=== PATIENT | male | born 1990 | race Caucasian/White ===

== ENCOUNTER 2016-08-02 12:08 | Emergency (ER) | payer SELFPAY ==
[2016-08-02 12:55] VITALS: BP 117/79; PULSE 66; RESP 14; TEMP 98.2; O2SAT 97
--- NOTE | 2016-08-02 13:25 | UCPHY ---
H & P Time Seen by Provider: 08/02/16 13:24 Patient Type: New HPI/ROS: Chief complaint. Blurry vision right eye HPI. 26 male blurry vision right eye for 2 days after getting a wood chip in his eye. No pain. Little bit of drainage. No redness. He has been sick with upper respiratory symptoms. No previous eye injury ROS Constitutional. no fever/chills, no weakness Eyes. Right eye blurry vision ENT. no sore throat, no nasal drainage Cardiovascular. no chest pain Respiratory. no shortness of breath, no cough Abdominal. no abdominal pain, no nausea/vomiting, no diarrhea . no problems urinating MS. no calf pain/swelling, no neck/back pain, no joint pain Skin. no rash Lymph. no swollen glands Neuro. no headache, no dizziness, no difficulty walking or with speech Past Medical/Surgical History: Healthy Social History: Single, nonsmoker, no alcohol Smoking Status: Never smoked Physical Exam: General Appearance: Alert well-developed male no distress vitals are stable Eyes: Pupils equal round reactive. There is no injection to the right eye. No obvious foreign body. ENT, Mouth: Mucous membranes are moist. Respiratory: There are no retractions, lungs are clear to auscultation. Cardiovascular: Regular rate and rhythm. Gastrointestinal: Abdomen is soft and nontender, no masses, bowel sounds normal. Neurological: Awake and alert, sensory and motor exams grossly normal. Skin: Warm and dry, no rashes. Musculoskeletal: Neck is supple nontender. Extremities symmetrical, full range of motion. Psychiatric: Patient is oriented X 3, there is no agitation. Constitutional: Initial Vital Signs Temperature (C) 36.8 C 08/02/16 12:47 Heart Rate 66 08/02/16 12:47 Respiratory Rate 14 08/02/16 12:47 Blood Pressure 117/79 08/02/16 12:47 O2 Sat (%) 97 08/02/16 12:47 O2 Delivery Mode Room Air Allergies/Adverse Reactions: No Known Allergies Allergy (Unverified 08/02/16 12:46) Home Medications: Medication Instructions Recorded NK [No Known Home Meds] 08/02/16 Medical Decision Making Procedures: Visual acuity is 2012 in the good eye which is left and 2014 in right eye Fluorescein and Alcaine or instilled in the right eye and the eye is examined under slit lamp. There is no fluorescence or evidence of abrasion or foreign body. The floor seen is irrigated from the eye. Patient tolerates the procedure well ED Course/Re-evaluation: Patient remained stable. He and I discussed treatment plan including criteria for return importance of follow-up and further evaluation. He expresses understanding and agreement Differential Diagnosis: I considered corneal abrasion, conjunctivitis, retained foreign body. I suspect the patient's symptoms may well be from his upper respiratory symptoms. His visual acuity is excellent Departure - Departure Disposition: Home, Routine, Self-Care Clinical Impression: Change in vision Condition: Good Instructions: Blurred Vision (ED) Additional Instructions: Return for worsening symptoms. Follow up with warehouse technician in 2-3 days if not improved Referrals: NONE *PRIMARY CARE P,. [Primary Care Provider] - As per Instructions Gerard Dunham MD [Medical Doctor] - 2-3 days, if not improved - PQRS PQRS Measurement: 134: Depression screening and followup, PRIME MD-PHQ2 (12 years and older) Over the last 2 weeks, how often have you been bothered by any of the following problems? 1. Feeling down, depressed, or hopeless? 2. Little interest or pleasure in doing things? Patient answered no to both 1 and 2 130: Documentation of medications. Reviewed all patient medications, doses, route and frequency. 226: Do you smoke? No.
== END 2016-08-02 13:43 | disposition home or self-care (01) ==
LOC: CED 12:08
DX: H53.9 Unspecified visual disturbance (principal)
CPT/HCPCS: 99203-PO; G0463-PO